=== PATIENT | female | born 1960 | race Caucasian/White ===

== ENCOUNTER 2022-03-14 11:47 | Inpatient (IN) | payer MEDICARE ==
[~2022-03-14] VITALS: Ht 167.6 cm; Wt 84.3 kg
[2022-03-14] MEDS ORDERED: MIRC100I SC (12:50)
[2022-03-14] MEDS ORDERED: SEMA1PEN2 SQ (12:50)
[2022-03-14] MEDS ORDERED: VELP5CHW PO (12:50)
[2022-03-14] MEDS ORDERED: ASPI81CH33 PO (12:50)
[2022-03-14] MEDS ORDERED: PROV108A INH (12:50)
[2022-03-14] MEDS ORDERED: BIOT1000 PO (12:50)
[2022-03-14] MEDS ORDERED: BISO5TAB14 PO (12:50)
[2022-03-14] MEDS ORDERED: RENA1TAB PO (12:50)
[2022-03-14] MEDS ORDERED: ASPI81TA26 PO (12:50)
[2022-03-14] MEDS ORDERED: LIDO1CRE42 TOP (12:50)
[2022-03-14] MEDS ORDERED: SERT-141 PO (12:50)
[2022-03-14] MEDS ORDERED: VENO20IN7 IV (12:50)
[2022-03-14] MEDS ORDERED: EZET10TA21 PO (12:50)
[2022-03-14] MEDS ORDERED: GABA-1171 PO (12:50)
[2022-03-14] MEDS ORDERED: LEVO25TA5 PO (12:50)
[2022-03-14] MEDS ORDERED: SYMB16INH INH (12:50)
[2022-03-14] MEDS ORDERED: ELIQ5TAB PO (12:50)
[2022-03-14] MEDS ORDERED: TRAZ-257 PO (12:50)
[2022-03-14] MEDS ORDERED: SIMV10TA21 PO (12:50)
[2022-03-14] MEDS ORDERED: DICL1GEL3 TOP (12:50)
[2022-03-14] MEDS ORDERED: CVS500TA35 PO (12:50)
[2022-03-14] MEDS ORDERED: DILT180C95 PO (12:50)
[2022-03-14] MEDS ORDERED: ASCO50TA PO (12:50)
[2022-03-14] MEDS ORDERED: SPIR12.9 INH (12:50)
[2022-03-14] MEDS ORDERED: CARDCAP3 PO (12:50)
[2022-03-14 13:32] LABS: BASO # 0.1 10^3/uL (0.0-0.2); BASO % 0.4 % (0.0-1.0); EOS # 0.2 10^3/uL (0.0-0.5); EOS % 1.2 % (0.0-3.0); HEMOGLOBIN 10.3 g/dl (12.0-15.5); LYMPH # 1.4 10^3/uL (1.5-5.0); LYMPH % 10.9 % (24.0-44.0); MEAN CORPUSCULAR HEMOGLOBIN 28.4 pg (27.0-33.0); MEAN CORPUSCULAR HGB CONC 28.6 g/dl (32.0-36.5); MEAN CORPUSCULAR VOLUME 99.2 fl (80.0-96.0); MONO % 7.6 % (2.0-8.0); NEUTROPHILS # 10.3 10^3/uL (1.5-8.5); NEUTROPHILS % 79.2 % (36.0-66.0); PLATELET COUNT, AUTOMATED 256 10^3/uL (150-450); RED BLOOD COUNT 3.63 10^6/uL (4.00-5.40)
[2022-03-14 14:13] LABS: ALBUMIN 3.7 GM/DL (3.2-5.2); BILIRUBIN,DIRECT 0.2 MG/DL (0.0-0.2); BILIRUBIN,TOTAL 0.3 MG/DL (0.2-1.0); CALCIUM LEVEL 9.2 MG/DL (8.8-10.2); CREATININE FOR GFR 7.77 MG/DL (0.55-1.30); GLOMERULAR FILTRATION RATE 5.6 (>45); POTASSIUM SERUM 7.8 MEQ/L (3.5-5.1); TOTAL PROTEIN 6.7 GM/DL (6.4-8.2)
[2022-03-14] MEDS ORDERED: CALCIUM CHLORIDE 10% 1 GM in D5W 100 ML IV SCH (14:30)
[2022-03-14] MEDS ORDERED: HumuLIN R (REGULAR) INSULIN (NovoLIN R) **100U/ML** PER UNIT IV STA (14:30)
[2022-03-14] MEDS ORDERED: DEXTROSE 50% 50 ML SYRINGE IV STA (14:30)
[2022-03-14] MEDS ORDERED: LIDOCAINE 1% SDV 5ML VIAL SC PRN (15:05)
[2022-03-14] MEDS ORDERED: SODIUM CHLORIDE 0.9% 1000ML IV PRN (15:05)
[2022-03-14] MEDS ORDERED: NOVOINJ3 SC (15:30)
[2022-03-14] MEDS ORDERED: TRAZ-252 PO (17:03)
[2022-03-14] MEDS ORDERED: HOME MED LIST COMPLETE! XX SCH (17:05)
[2022-03-14] MEDS ORDERED: GLUCOSE 4GM CHEW TABLET PO PRN (17:20)
[2022-03-14] MEDS ORDERED: DEXTROSE 50% 50 ML SYRINGE IV PRN (17:20)
[2022-03-14] MEDS ORDERED: GLUCAGON INJ 1MG VIAL SC PRN (17:20)
[2022-03-14] MEDS: HumaLOG INSULIN (NovoLOG) PER UNIT SC SCH ×2 (17:30→21:00)
[2022-03-14] MEDS: (RENVELA) SEVELAMER **CARBONate** 800 MG TAB PO SCH (21:33)
[2022-03-14] MEDS: SIMVASTATIN 10 MG TAB PO SCH (21:33)
[2022-03-14] MEDS: ASPIRIN 81MG ENTERIC TABLET PO SCH (21:34)
[2022-03-14] MEDS: SERTRALINE HCL 50 MG TAB PO SCH (21:34)
[2022-03-14] MEDS: GABAPENTIN 100 MG CAP PO SCH (21:34)
[2022-03-14] MEDS: APIXABAN 5 MG TAB (ELIQUIS) PO SCH (21:34)
[2022-03-14] MEDS: SUCROFERRIC OXYHYDROXIDE 500MG CHEW TAB (VELPHORO) PO SCH (21:35)
[2022-03-14] MEDS: SYMBICORT 160/4.5MCG INHALER 6GM INH SCH (21:47)
[2022-03-14 21:55] LABS: RSV AMPLIFICATION NEGATIVE (NEGATIVE)
[2022-03-15 01:20] VITALS: BP 167/73
[2022-03-15 04:00] VITALS: BP 133/61
[2022-03-15] MEDS: LEVOTHYROXINE 25MCG TABLET (0.025MG) PO SCH (05:47)
[2022-03-15] MEDS: TIOTROPIUM INHALER/CAPSULE (SPIRIVA) INH SCH (07:19)
[2022-03-15] MEDS: SYMBICORT 160/4.5MCG INHALER 6GM INH SCH ×2 (07:19→19:26)
[2022-03-15 07:54] LABS: HEMATOCRIT 33.5 % (36.0-47.0); HEMOGLOBIN 9.8 g/dl (12.0-15.5); MEAN CORPUSCULAR HEMOGLOBIN 29.8 pg (27.0-33.0); MEAN CORPUSCULAR HGB CONC 29.3 g/dl (32.0-36.5); MEAN CORPUSCULAR VOLUME 101.8 fl (80.0-96.0); PLATELET COUNT, AUTOMATED 196 10^3/uL (150-450); RED BLOOD COUNT 3.29 10^6/uL (4.00-5.40); WHITE BLOOD COUNT 9.3 10^3/uL (4.0-10.0)
[2022-03-15 08:01] VITALS: BP 156/70
[2022-03-15 08:22] LABS: ALBUMIN 3.1 GM/DL (3.2-5.2); CREATININE FOR GFR 4.7 MG/DL (0.55-1.30); POTASSIUM SERUM 5.5 MEQ/L (3.5-5.1)
[2022-03-15] MEDS: ASCORBIC ACID 500 MG TAB PO SCH (08:42)
[2022-03-15] MEDS: SUCROFERRIC OXYHYDROXIDE 500MG CHEW TAB (VELPHORO) PO SCH ×3 (08:42→18:00)
[2022-03-15] MEDS: diltiaZEM **CD** 180 MG CAP PO SCH (08:43)
[2022-03-15] MEDS: (RENVELA) SEVELAMER **CARBONate** 800 MG TAB PO SCH ×3 (08:43→18:00)
[2022-03-15] MEDS: APIXABAN 5 MG TAB (ELIQUIS) PO SCH ×2 (08:43→21:50)
[2022-03-15] MEDS: EZETIMIBE 10MG TABLET (ZETIA) PO SCH (08:43)
[2022-03-15] MEDS: HumaLOG INSULIN (NovoLOG) PER UNIT SC SCH ×4 (08:43→21:50)
[2022-03-15] MEDS ORDERED: SODIUM CHLORIDE 0.9% 1000ML IV PRN (08:50)
[2022-03-15] MEDS ORDERED: LIDOCAINE 1% SDV 5ML VIAL SC PRN (08:50)
[2022-03-15 12:23] VITALS: BP 130/58
[2022-03-15 17:17] VITALS: BP 148/66
[2022-03-15] MEDS: ASPIRIN 81MG ENTERIC TABLET PO SCH (21:49)
[2022-03-15] MEDS: SIMVASTATIN 10 MG TAB PO SCH (21:50)
[2022-03-15] MEDS: SERTRALINE HCL 50 MG TAB PO SCH (21:50)
[2022-03-15] MEDS: GABAPENTIN 100 MG CAP PO SCH (21:50)
[2022-03-15 22:00] VITALS: BP 146/66
[2022-03-16] MEDS: LEVOTHYROXINE 25MCG TABLET (0.025MG) PO SCH (05:55)
[2022-03-16 06:00] VITALS: BP 139/60
[2022-03-16 07:40] LABS: HEMATOCRIT 33.1 % (36.0-47.0); HEMOGLOBIN 9.4 g/dl (12.0-15.5); MEAN CORPUSCULAR HGB CONC 28.4 g/dl (32.0-36.5); MEAN CORPUSCULAR VOLUME 102.2 fl (80.0-96.0); PLATELET COUNT, AUTOMATED 185 10^3/uL (150-450); RED BLOOD COUNT 3.24 10^6/uL (4.00-5.40); WHITE BLOOD COUNT 7.5 10^3/uL (4.0-10.0)
[2022-03-16] MEDS: SYMBICORT 160/4.5MCG INHALER 6GM INH SCH (08:07)
[2022-03-16] MEDS: TIOTROPIUM INHALER/CAPSULE (SPIRIVA) INH SCH (08:07)
[2022-03-16 08:09] LABS: ALBUMIN 2.9 GM/DL (3.2-5.2); CALCIUM LEVEL 8.4 MG/DL (8.8-10.2); CREATININE FOR GFR 4.39 MG/DL (0.55-1.30); GLOMERULAR FILTRATION RATE 10.8 (>45); POTASSIUM SERUM 4.4 MEQ/L (3.5-5.1)
[2022-03-16] MEDS: (RENVELA) SEVELAMER **CARBONate** 800 MG TAB PO SCH ×2 (08:20→12:19)
[2022-03-16] MEDS: APIXABAN 5 MG TAB (ELIQUIS) PO SCH (08:20)
[2022-03-16 08:22] VITALS: BP 148/69
[2022-03-16] MEDS: diltiaZEM **CD** 180 MG CAP PO SCH (08:22)
[2022-03-16] MEDS: ASCORBIC ACID 500 MG TAB PO SCH (08:22)
[2022-03-16] MEDS: EZETIMIBE 10MG TABLET (ZETIA) PO SCH (08:22)
[2022-03-16] MEDS: SUCROFERRIC OXYHYDROXIDE 500MG CHEW TAB (VELPHORO) PO SCH ×2 (08:22→12:18)
[2022-03-16] MEDS: HumaLOG INSULIN (NovoLOG) PER UNIT SC SCH ×2 (08:23→12:18)
[2022-03-16] MEDS ORDERED: LEVEMIR (INSULIN DETEMIR) 1 UNITS/0.01ML SC SCH (09:00)
[2022-03-16 10:15] LABS: HEMOGLOBIN A1c 8.3 %
[2022-03-17] MEDS ORDERED: LIDOCAINE 1% SDV 5ML VIAL SC PRN (06:00)
[2022-03-17] MEDS ORDERED: SODIUM CHLORIDE 0.9% 1000ML IV PRN (06:00)
== END 2022-03-16 13:45 | disposition home or self-care (01) | DRG 640 ==
LOC: EDBD 11:47 → M ED 11:47 → M ED INP 15:04 → M PCU 03-15 01:26 → M MSPAV 03-15 16:54
PROVIDERS: ADMIT Internal Medicine Nephrology; ATTEND Internal Medicine Nephrology
PROC: 5A1D70Z Performance of Urinary Filtration, Intermittent, Less than 6 Hours Per Day (ICD-10-PCS; principal; 2022-03-14)
DX: E87.5 Hyperkalemia (principal); N18.6 End stage renal disease; I13.2 Hypertensive heart and chronic kidney disease with heart failure and with stage 5 chronic kidney disease, or end stage renal disease; N25.81 Secondary hyperparathyroidism of renal origin; E11.40 Type 2 diabetes mellitus with diabetic neuropathy, unspecified; E11.22 Type 2 diabetes mellitus with diabetic chronic kidney disease; E11.65 Type 2 diabetes mellitus with hyperglycemia; J44.9 Chronic obstructive pulmonary disease, unspecified; E03.9 Hypothyroidism, unspecified; Z99.2 Dependence on renal dialysis; I50.9 Heart failure, unspecified; D64.9 Anemia, unspecified; I25.10 Atherosclerotic heart disease of native coronary artery without angina pectoris; I48.91 Unspecified atrial fibrillation; R53.1 Weakness; Z79.01 Long term (current) use of anticoagulants; Z79.82 Long term (current) use of aspirin; Z79.899 Other long term (current) drug therapy; Z95.2 Presence of prosthetic heart valve; Z91.040 Latex allergy status; Z95.1 Presence of aortocoronary bypass graft; F17.200 Nicotine dependence, unspecified, uncomplicated; Z91.041 Radiographic dye allergy status; Z88.8 Allergy status to other drugs, medicaments and biological substances; R29.6 Repeated falls; E87.0 Hyperosmolality and hypernatremia